=== PATIENT | female | born 1960 ===

== ENCOUNTER 2021-05-25 06:00 | Outpatient (RCR) | payer MEDICARE, MEDICAID, SELFPAY | END 2021-05-27 23:59 | disposition home or self-care (01) | LOC: MPT 06:00 | PROVIDERS: Referring Provider Anesthesiology Pain Medicine; Visit Provider Anesthesiology Pain Medicine | DX: M54.51 Vertebrogenic low back pain (principal) | CPT/HCPCS: 97162 ==